=== PATIENT | male | born 1950 | race African-American/Black ===

== ENCOUNTER 2018-12-01 19:15 | Emergency (ER) | payer MEDICARE, OTHER ==
[~2018-12-01] VITALS: Ht 182.9 cm; Wt 49.9 kg
--- NOTE | 2018-12-01 19:52 | PHYS DOC ---
Past Medical History Past Medical History: Diabetes-Type II Additional Past Medical Histor: urinary retention Past Surgical History: Other Additional Past Surgical Histo: groin hernia right side Alcohol Use: Occasionally Drug Use: None Adult General Chief Complaint Chief Complaint: GI PROBLEM HPI HPI 68-year-old male presents to the emergency department with complaints of C. difficile diagnosis. Patient was seen at [facility], [place] and diagnosed with C. difficile, he spent 5 days and patient was subsequently discharged with home medications. Patient states he had recurrent diarrhea was seen [place] on [place] admitted at that time and subsequently left AMA because they would not feed him. Patient denies any diarrhea, nausea, vomiting, fever, abdominal pain. He was seen in the emergency department today with concerns for diagnosis, they told him he could . Review of Systems Review of Systems Constitutional: Denies fever or chills [] Respiratory: Denies cough or shortness of breath [] Cardiovascular: No additional information not addressed in HPI [] GI: Denies abdominal pain, nausea, vomiting, bloody stools or diarrhea [] Musculoskeletal: Denies back pain or joint pain [] Neurologic: Denies headache, focal weakness or sensory changes [] All other systems were reviewed and found to be within normal limits, except as documented in this note. Current Medications Current Medications Current Medications Medications (Trade) Dose Ordered Sig/[facility] Start Time Stop Time Status Last Admin Dose Admin Dextrose (Dextrose 50%-Water Syringe) 25 gm 1X ONCE 12/01/18 20:45 12/01/18 20:48 DC 12/01/18 21:35 25 GM Insulin Human Lispro (HumaLOG) 10 units ONCE ONCE 12/01/18 21:30 12/01/18 21:31 DC Sodium Chloride 1,000 ml @ 1,000 mls/hr 1X ONCE 12/01/18 20:45 12/01/18 21:44 DC 12/01/18 21:19 1,000 MLS/HR Allergies Allergies Allergies Coded Allergies Type Severity Reaction Last Updated Verified No Known Drug Allergies 11/06/15 No Physical Exam Physical Exam Constitutional: Well developed, well nourished, no acute distress, non-toxic appearance. [] HENT: Normocephalic, atraumatic, bilateral external ears normal, oropharynx moist, no oral exudates, nose normal. [] Cardiovascular:Heart rate regular rhythm, no murmur [] Lungs & Thorax: Bilateral breath sounds clear to auscultation [] Abdomen: Bowel sounds normal, soft, no tenderness, no masses, no pulsatile masses. [] Skin: Warm, dry, no erythema, no rash. [] Back: No tenderness, no CVA tenderness. [] Extremities: No tenderness, no cyanosis, no edema. [] Neurologic: Alert and oriented X 3, no focal deficits noted. [] Psychologic: Affect normal, judgement normal, mood normal. [] Current Patient Data Vital Signs Vital Signs Date Time Temp Pulse Resp B/P (MAP) Pulse Ox O2 Delivery O2 Flow Rate FiO2 12/01/18 19:55 98.3 70 16 165/84 (111) 98 Room Air 98.3 Lab Values Laboratory Tests Test 12/01/18 20:08 12/01/18 21:33 12/01/18 23:13 12/01/18 23:21 White Blood Count 5.2 x10^3/uL (4.0-11.0) Red Blood Count 3.73 x10^6/uL (4.30-5.70) L Hemoglobin 11.6 g/dL (13.0-17.5) L Hematocrit 35.3 % (39.0-53.0) L Mean Corpuscular Volume 95 fL (79-100) Mean Corpuscular Hemoglobin 31 pg (25-35) Mean Corpuscular Hemoglobin Concent 33 g/dL (31-37) Red Cell Distribution Width 12.8 % (11.5-14.5) Platelet Count 269 x10^3/uL (140-400) Neutrophils (%) (Auto) 55 % (31-73) Lymphocytes (%) (Auto) 33 % (24-48) Monocytes (%) (Auto) 10 % (0-9) H Eosinophils (%) (Auto) 2 % (0-3) Basophils (%) (Auto) 1 % (0-3) Neutrophils # (Auto) 2.9 x10^3/uL (1.8-7.7) Lymphocytes # (Auto) 1.7 x10^3/uL (1.0-4.8) Monocytes # (Auto) 0.5 x10^3/uL (0.0-1.1) Eosinophils # (Auto) 0.1 x10^3/uL (0.0-0.7) Basophils # (Auto) 0.0 x10^3/uL (0.0-0.2) Sodium Level 133 mmol/L (136-145) L Potassium Level 5.9 mmol/L (3.5-5.1) H Chloride Level 103 mmol/L (98-107) Carbon Dioxide Level 21 mmol/L (21-32) Anion Gap 9 (6-14) Blood Urea Nitrogen 33 mg/dL (8-26) H Creatinine 1.9 mg/dL (0.7-1.3) H Estimated GFR (Cockcroft-Gault) 42.6 BUN/Creatinine Ratio 17 (6-20) Glucose Level 134 mg/dL (70-99) H Calcium Level 9.2 mg/dL (8.5-10.1) Total Bilirubin 0.2 mg/dL (0.2-1.0) Aspartate Amino Transferase (AST) 14 U/L (15-37) L Alanine Aminotransferase (ALT) 22 U/L (16-63) Alkaline Phosphatase 84 U/L (46-116) Total Protein 8.1 g/dL (6.4-8.2) Albumin 3.7 g/dL (3.4-5.0) Albumin/Globulin Ratio 0.8 (1.0-1.7) L Glucose (Fingerstick) 108 mg/dL (70-99) H 24 mg/dL (70-99) *L 202 mg/dL (70-99) H Test 12/02/18 00:10 Sodium Level 138 mmol/L (136-145) Potassium Level 4.5 mmol/L (3.5-5.1) # Chloride Level 107 mmol/L (98-107) Carbon Dioxide Level 18 mmol/L (21-32) L Anion Gap 13 (6-14) Blood Urea Nitrogen 32 mg/dL (8-26) H Creatinine 1.8 mg/dL (0.7-1.3) H Estimated GFR (Cockcroft-Gault) 45.4 Glucose Level 64 mg/dL (70-99) L Calcium Level 9.1 mg/dL (8.5-10.1) Laboratory Tests 12/01/18 20:08 Laboratory Tests 12/01/18 20:08 12/02/18 00:10 EKG EKG EKG review, heart rate 72, normal sinus rhythm. Patient does have mildly peaked T waves in V3 V4 as well as lead 1 and 2.[] Interpretation Time: Interpretation time 2105 Radiology/Procedures Radiology/Procedures [] Course & Med Decision Making Course & Med Decision Making Pertinent Labs and Imaging studies reviewed. (See chart for details) []68-year-old male presents to the emergency department with complaints of C. difficile diagnosis. Patient was seen at [facility] [place], [place] and diagnosed with C. difficile, he spent 5 days and patient was subsequently discharged with home medications. Patient states he had recurrent diarrhea was seen [place] on Friday admitted at that time and subsequently left AMA because they would not feed him. Patient denies any diarrhea, nausea, vomiting, fever, abdominal pain. He was seen in the emergency department today with concerns for diagnosis, they told him he could . Labs reviewed, RITA 1.9, Hyperkalemia 5.9. Will medically treat with IV dex trose, IVF, and 10 units sq insulin. Check EKG given hyperkalemia - EKG did reveal evidence of elevated T waves. Patient did have episode of hypoglycemia requiring D50. This improved her blood sugar is 83. Patient is alert and oriented this time. Repeat laboratory studies after treatment of hyper kalemia revealed improvement of potassium to 4.5. Patient is planned for discharge at this time recommend holding lisinopril �2 days given the ability for potassium elevation. Given patient is asymptomatic with previous diagnosis of C. difficile, no nausea, vomiting, fever, oral intake is appropriate plan for discharge home with by mouth antibiotic therapy. Discussed discharge plans with patient and he is in agreement. Dragon Disclaimer Dragon Disclaimer This electronic medical record was generated, in whole or in part, using a voice recognition dictation system. Departure Departure Impression: Primary Impression: History of Clostridioides difficile infection Additional Impressions: Hyperkalemia Hypoglycemia Disposition: HOME, SELF-CARE Condition: STABLE Referrals: UNKNOWN PCP NAME (PCP) Patient Instructions: Hyperkalemia, [id number], Hypoglycemia, [id number] Additional Instructions: Recommend follow up with PCP 3 - 5 days Return to the ER with worsening symptoms, intractable pain, fever, altered mental status, diarrhea Tylenol as needed for pain Take antibioitics, if prescribed as directed Hold lisinopril x 3 days given potassium elevation Scripts Metronidazole (FLAGYL) 500 Mg Tablet 1 TAB PO TID for 14 Days, #42 TAB Prov: KORINA DEL VALLE MD 12/02/18 Problem Qualifiers KORINA DEL VALLE MD Dec 01, 2018 19:52
[2018-12-01 20:15] LABS: BASO % 1 % (0-3); EOS # 0.1 x10^3/uL (0.0-0.7); EOS % 2 % (0-3); HEMATOCRIT 35.3 % (39.0-53.0); HEMOGLOBIN 11.6 g/dL (13.0-17.5); LYMPH # 1.7 x10^3/uL (1.0-4.8); LYMPH % 33 % (24-48); MEAN CORPUSCULAR HEMOGLOBIN 31 pg (25-35); MEAN CORPUSCULAR HGB CONC 33 g/dL (31-37); MEAN CORPUSCULAR VOLUME 95 fL (79-100); MONO # 0.5 x10^3/uL (0.0-1.1); MONO % 10 % (0-9); NEUT # 2.9 x10^3/uL (1.8-7.7); NEUT % 55 % (31-73); PLATELET COUNT 269 x10^3/uL (140-400); RED BLOOD COUNT 3.73 x10^6/uL (4.30-5.70); RED CELL DISTRIBUTION WIDTH 12.8 % (11.5-14.5); WHITE BLOOD COUNT 5.2 x10^3/uL (4.0-11.0)
[2018-12-01 20:22] LABS: CALCIUM 9.2 mg/dL (8.5-10.1); CREATININE 1.9 mg/dL (0.7-1.3); GFR 42.6; POTASSIUM 5.9 mmol/L (3.5-5.1)
[2018-12-01 20:27] LABS: ALBUMIN 3.7 g/dL (3.4-5.0); ALBUMIN/GLOBULIN RATIO 0.8 (1.0-1.7); TOTAL BILIRUBIN 0.2 mg/dL (0.2-1.0); TOTAL PROTEIN 8.1 g/dL (6.4-8.2)
[2018-12-01] MEDS ORDERED: INSULIN LISPRO 300 UNITS/3 ML VIAL. SQ ONE ×2 (20:45→21:30)
[2018-12-01] MEDS ORDERED: IV NORMAL SALINE 1000ML BAG 1,000 ML IV ONE (20:45)
[2018-12-01] MEDS ORDERED: DEXTROSE 50% 25 GM / 50ML DISP.SYRIN. IV ONE (20:45)
[2018-12-02 00:29] LABS: CALCIUM 9.1 mg/dL (8.5-10.1); CREATININE 1.8 mg/dL (0.7-1.3); GFR 45.4; POTASSIUM 4.5 mmol/L (3.5-5.1)
[2018-12-02 00:39] VITALS: BP 156/77
[2018-12-02] MEDS ORDERED: METR500T PO (00:52)
--- NOTE | 2018-12-02 06:07 | EKG ---
[facility] [address] [place] [id number] Test Date: 2018-12-01 Test Time: 21:01:29 Pat Name: ANALI MENDIOLA Department: Room: Gender: M [employer]: : [id number] Requested By: KORINA DEL VALLE Order Number: [id number] Reading MD: Cody Fajardo MD Measurements Intervals [place] Rate: 72 P: 40 VT: 200 QRS: 75 QRSD: 86 T: 73 QT: 380 QTc: 418 Interpretive Statements SINUS RHYTHM Electronically Signed On 12-14-2018 13:53:05 CDT by Cody Fajardo MD
== END 2018-12-02 00:58 | disposition home or self-care (01) ==
LOC: ER 19:15
DX: E11.649 Type 2 diabetes mellitus with hypoglycemia without coma (principal); E87.5 Hyperkalemia; R19.7 Diarrhea, unspecified
CPT/HCPCS: 36415; 80048; 80053; 82962; 85025; 93005; 96361; 96372; 96374; 99285; J1815; J7030; J7042